=== PATIENT | male | born 1945 | race Caucasian/White ===

== ENCOUNTER → 2017-09-17 | Outpatient (CLI) | payer MEDICARE, OTHER ==
[~2017-09-17] MED LIST: ACYCLOVIR PO; HYDR-3245 PO; INDO50CA PO; LORA-446 PO; MINOCYCLINE PO; OMNIPAQUE 350 MG/ML, 150 ML BOTTLE ONE
[2017-09-17 12:55] LABS: BLOOD UREA NITROGEN 15 mg/dL (7-18)
[2017-09-17 12:59] LABS: ASPARTATE AMINO TRANSFERASE 20 U/L (15-37)
== END | disposition home or self-care (01) ==
LOC: CFH 08:38
PROVIDERS: ATTEND Specialist
DX: C91.10 Chronic lymphocytic leukemia of B-cell type not having achieved remission (principal); R16.1 Splenomegaly, not elsewhere classified; N40.0 Benign prostatic hyperplasia without lower urinary tract symptoms; N28.1 Cyst of kidney, acquired; M47.896 Other spondylosis, lumbar region; M47.894 Other spondylosis, thoracic region
CPT/HCPCS: 36415; 70491; 71260; 74177; 80053; 82565; Q9967

== ENCOUNTER → 2017-12-18 | Outpatient (CLI) | payer MEDICARE | END | disposition home or self-care (01) | LOC: CFH 11:44 | PROVIDERS: ATTEND Specialist | DX: R59.9 Enlarged lymph nodes, unspecified (principal); R16.1 Splenomegaly, not elsewhere classified; C91.10 Chronic lymphocytic leukemia of B-cell type not having achieved remission | CPT/HCPCS: 70491; 71260; 74177; Q9967 ==

== ENCOUNTER → 2018-01-21 | Outpatient (CLI) | payer MEDICARE ==
[~2018-01-21] MED LIST changes: -OMNIPAQUE 350 MG/ML, 150 ML BOTTLE ONE
== END | disposition home or self-care (01) ==
LOC: STAR 13:48
PROVIDERS: ATTEND Surgery
DX: Z01.818 Encounter for other preprocedural examination (principal)
CPT/HCPCS: 93005

== ENCOUNTER 2018-01-25 07:27 | Day surgery (SDC) | payer MEDICARE ==
[2018-01-21 14:06] VITALS: BP 151/91
[~2018-01-25] VITALS: Ht 177.8 cm; Wt 93.6 kg
[2018-01-25] MEDS ORDERED: LACTATED RINGERS 1,000 ML IV SCH (08:02)
[2018-01-25] MEDS ORDERED: MIDAZOLAM 1 MG/ML, 2ML ONE (08:23)
[2018-01-25] MEDS ORDERED: FENTANYL PF 100 MCG/2ML ONE (08:23)
[2018-01-25] MEDS ORDERED: BUPIVACAINE/PF 0.5% ONE (09:00)
[2018-01-25] MEDS ORDERED: EPINEPHRINE 1 MG/ML, 1ML ONE (09:01)
[2018-01-25] MEDS ORDERED: KETOROLAC 30 MG/1 ML ONE (09:17)
[2018-01-25] MEDS ORDERED: ONDANSETRON 2MG/ML, 2ML ONE (09:17)
[2018-01-25] MEDS ORDERED: DEXAMETHASONE 4 MG/ML, 1ML ONE (09:17)
[2018-01-25] MEDS ORDERED: CEFAZOLIN 1,000 MG ONE (09:17)
[2018-01-25] MEDS ORDERED: PROPOFOL 10 MG/ML, 20ML ONE (09:17)
[2018-01-25] MEDS ORDERED: BUPIVACAINE/PF 0.5% INFIL ONE (09:47)
[2018-01-25] MEDS ORDERED: EPINEPHRINE 1 MG/ML, 1ML INFIL ONE (09:49)
[2018-01-25] MEDS ORDERED: HYDROmorphone 1 MG/ML, 1ML IV PRN (10:00)
[2018-01-25] MEDS ORDERED: morphine SULFATE 10 MG/ML, 1ML IV PRN (10:00)
[2018-01-25] MEDS ORDERED: LORazepam 2 MG/ML, 1ML IVPush PRN (10:00)
[2018-01-25] MEDS ORDERED: ACETAMINOPHEN 325 MG TABLET PO PRN (10:00)
[2018-01-25] MEDS ORDERED: ALBUTEROL SULFATE 2.5 MG/3 ML NPPB PRN (10:00)
[2018-01-25] MEDS ORDERED: PROMETHAZINE 12.5 MG SUPP PR PRN (10:00)
[2018-01-25] MEDS ORDERED: hydrALAzine 20 MG/ML, 1ML IV PRN (10:00)
[2018-01-25] MEDS ORDERED: LABETALOL 5MG/ML, 20ML IV PRN (10:00)
[2018-01-25] MEDS ORDERED: PROMETHAZINE 25 MG/ML, 1ML IV PRN (10:00)
[2018-01-25] MEDS ORDERED: OXYcodone 5 MG/5 ML ORAL.SOL UDC PO PRN (10:00)
[2018-01-25] MEDS ORDERED: MEPERIDINE/PF 25MG/0.5ML IVPush PRN (10:00)
[2018-01-25] MEDS ORDERED: FENTANYL PF 100 MCG/2ML IV PRN (10:00)
[2018-01-25] MEDS ORDERED: ONDANSETRON 2MG/ML, 2ML IVPush PRN (10:30)
[2018-01-25] MEDS ORDERED: KETOROLAC 30 MG/1 ML IVPush PRN (10:30)
[2018-01-25] MEDS ORDERED: morphine SULFATE 10 MG/ML, 1ML IVPush PRN (10:30)
[2018-01-25] MEDS ORDERED: HYDROcodone/APAP 5/325 TABLET PO PRN (10:30)
[2018-01-25] MEDS ORDERED: OXYcodone 5 MG/5 ML ORAL.SOL UDC ONE (10:51)
[2018-01-25] MEDS ORDERED: ACETAMINOPHEN 650 MG/20.3 ML UDC ONE (10:51)
== END 2018-01-25 11:55 | disposition home or self-care (01) ==
LOC: OUT 07:27
PROVIDERS: ATTEND Surgery
DX: C91.10 Chronic lymphocytic leukemia of B-cell type not having achieved remission (principal); Z79.899 Other long term (current) drug therapy; Z98.890 Other specified postprocedural states; M10.9 Gout, unspecified; Z80.3 Family history of malignant neoplasm of breast; Z80.8 Family history of malignant neoplasm of other organs or systems; Z80.52 Family history of malignant neoplasm of bladder; Z82.49 Family history of ischemic heart disease and other diseases of the circulatory system; Z72.89 Other problems related to lifestyle
CPT/HCPCS: 38525; 88305; 88329; J0171; J0690; J1100; J1885; J2250; J2405; J2704; J3010; J3490; J7120

== ENCOUNTER → 2018-05-21 | Outpatient (CLI) | payer MEDICARE ==
[~2018-05-21] MED LIST changes: -INDO50CA PO; +INDO50CA5 PO; +OMNIPAQUE 350 MG/ML, 150 ML BOTTLE ONE
== END | disposition home or self-care (01) ==
LOC: CFH 11:48
PROVIDERS: ATTEND Specialist
DX: J84.9 Interstitial pulmonary disease, unspecified (principal); K40.90 Unilateral inguinal hernia, without obstruction or gangrene, not specified as recurrent; C91.10 Chronic lymphocytic leukemia of B-cell type not having achieved remission; M47.9 Spondylosis, unspecified
CPT/HCPCS: 70491; 71260; 74177; Q9967

== ENCOUNTER → 2021-03-10 | Outpatient (CLI) | payer MEDICARE ==
[~2021-03-10] MED LIST changes: -HYDR-3245 PO; +HYDR1TAB53 PO; +INDO50CA15 PO; -INDO50CA5 PO; +OMNIPAQUE 350 MG/ML, 100ML BOTTLE ONE; -OMNIPAQUE 350 MG/ML, 150 ML BOTTLE ONE
== END | disposition home or self-care (01) ==
LOC: CFH 13:09
PROVIDERS: ATTEND Internal Medicine Hematology & Oncology
DX: C91.11 Chronic lymphocytic leukemia of B-cell type in remission (principal); N40.1 Benign prostatic hyperplasia with lower urinary tract symptoms; K76.0 Fatty (change of) liver, not elsewhere classified; Z79.899 Other long term (current) drug therapy
CPT/HCPCS: 71260; 74177; Q9967